=== PATIENT | male | born 1960 | race Caucasian/White ===

== ENCOUNTER 2017-09-02 16:41 | Emergency (ER) | payer OTHER ==
[~2017-09-02] VITALS: Ht 182.9 cm; Wt 99.8 kg
== END 2017-09-02 18:24 | disposition home or self-care (01) ==
LOC: ER 16:41
DX: S52.502A Unspecified fracture of the lower end of left radius, initial encounter for closed fracture (principal); S62.002A Unspecified fracture of navicular [scaphoid] bone of left wrist, initial encounter for closed fracture; W22.8XXA Striking against or struck by other objects, initial encounter
CPT/HCPCS: 29505; 73110; 99283

== ENCOUNTER 2017-09-11 13:56 | Day surgery (SDC) | payer OTHER, BC ==
[~2017-09-11] VITALS: Ht 182.9 cm; Wt 103.4 kg
[2017-09-11] MEDS ORDERED: IBUP400 PO (14:49)
== END 2017-09-11 18:40 | disposition home or self-care (01) ==
LOC: ORSCSDS 13:56
DX: S62.012A Displaced fracture of distal pole of navicular [scaphoid] bone of left wrist, initial encounter for closed fracture (principal); S52.502A Unspecified fracture of the lower end of left radius, initial encounter for closed fracture
CPT/HCPCS: C1713; C1769; J0690; J1100; J1885; J2250; J2405; J3010; J7120